=== PATIENT | male | born 1985 | race Caucasian/White ===

== ENCOUNTER → 2019-08-28 | Outpatient (CLI) | payer BC ==
[~2019-08-28] MED LIST: ACHD5005 PO; BSP5T PO; CEPH500C PO; IBUP-15 PO; LISI5TAB PO; NAPR-243 PO
--- NOTE | 2019-08-28 14:17 | Diagnostic Imaging Report ---
INDICATION: Lower back pain with left-sided sciatica. Slipped disc. TECHNIQUE: AP, Lateral and Spot imaging of the lumbar spine CORRELATION STUDY: None FINDINGS: The lumbar spinal curvature is slightly diminished, straightened. The alignment is otherwise normal. Vertebral body heights and disc spaces are maintained. No fracture or malalignment is seen. IMPRESSION: No radiographic evidence for acute bony abnormality of the lumbar spine. Dictated by: Dictated on workstation # [id number]
== END ==
LOC: RAD 12:38
PROVIDERS: ATTEND Nurse Practitioner Family
DX: M51.16 Intervertebral disc disorders with radiculopathy, lumbar region (principal)
CPT/HCPCS: 72100

== ENCOUNTER → 2019-09-08 | Outpatient (CLI) | payer BC ==
--- NOTE | 2019-09-08 08:52 | Diagnostic Imaging Report ---
PROCEDURE: MRI lumbar spine. TECHNIQUE: Multiplanar/multisequence MRI of the lumbar spine was performed without contrast. DATE: September 08, 2019. COMPARISON: Lumbar spine radiographs August 28, 2019. INDICATION: 33-year-old male, injury in July 2019. Low back pain. FINDINGS: There is normal lumbosacral spine alignment. The bone marrow signal is unremarkable. The visualized cord and conus medullaris is unremarkable and terminates at the T12-L1 level. The disc heights are well preserved. L1-L2: There is no disc bulge. The facet joints and ligamentum flavum are unremarkable. There is no foraminal narrowing. There is no spinal canal stenosis. L2-L3: There is no disc bulge. The facet joints and ligamentum flavum are unremarkable. There is no foraminal narrowing. There is no spinal canal stenosis. L3-L4: There is no disc bulge. There are mild left facet degenerative changes without ligamentum flavum hypertrophy. There is a very small right facet joint effusion. There is no foraminal narrowing. There is no spinal canal stenosis. L4-L5: There is an annular tear with somewhat broad-based posterior disc protrusion. This contacts the bilateral descending L5 nerve roots. The disc protrusion measures 13 mm in transverse dimension and 3 mm in anterior to posterior dimension. There is mild narrowing of the left lateral recess. The facet joints and ligamentum flavum are unremarkable. There is mild left foraminal narrowing. There is mild spinal canal stenosis. L5-S1: There is no disc bulge. The facet joints and ligamentum flavum are unremarkable. There is no foraminal narrowing. There is no spinal canal stenosis. IMPRESSION: L4-L5 annular tear and broad-based posterior disc protrusion contacting both descending L5 nerve roots and causing mild narrowing of the left lateral recess and mild left foraminal narrowing. There is mild spinal stenosis at this level. Dictated by: Dictated on workstation # [id number]
== END ==
LOC: RAD 07:52
PROVIDERS: ATTEND Nurse Practitioner Family
DX: M51.16 Intervertebral disc disorders with radiculopathy, lumbar region (principal); M48.061 Spinal stenosis, lumbar region without neurogenic claudication
CPT/HCPCS: 72148

== ENCOUNTER → 2020-10-04 | Outpatient (CLI) | payer BC ==
--- NOTE | 2020-10-04 16:21 | Diagnostic Imaging Report ---
PROCEDURE: MRI right joint lower extremity without contrast. TECHNIQUE: Multiplanar, multisequence non contrast-enhanced MRI of the right lower extremity was accomplished. INDICATION: Ankle pain. COMPARISON: None available. FINDINGS: Tendons: The Achilles is intact. The peroneus longus and brevis tendons are normal. Posterior tibialis, flexor hallucis longus and flexor digitorum longus are intact. Anterior tibialis, extensor hallucis longus and extensor digitorum longus are normal. Ligaments: The anterior and posterior distal tibiofibular ligaments are intact. The anterior talofibular, calcaneofibular and posterior talofibular ligaments are normal. Medial deltoid ligamentous complex is intact. Spring ligament is normal in appearance. Bones: There is bone marrow edema within the navicular as well as a hypointense fracture line along its medial aspect. A very small amount of bone marrow edema is present in the lateral and distal aspect of the talar head. Remainder of the osseous structures of the hindfoot and midfoot have normal bone marrow signal. No osteochondral lesion of talar dome. Soft tissues: No ankle joint effusion. No features of plantar fasciitis. No mass effect on the tarsal canal. No abnormal inflammation or scar tissue within the sinus tarsi. IMPRESSION: 1. Nondisplaced fracture within the navicular is most likely a stress fracture in the absence of recent trauma. CT of the ankle without contrast is suggested for further evaluation of fine bone detail. 2. Small focus of bone contusion in the plantar and lateral aspect of the talar head. 3. No ligament or tendon injury about the ankle. Dictated by: Dictated on workstation # [id number]
== END ==
LOC: RAD 13:15
PROVIDERS: ATTEND Nurse Practitioner Family
DX: S92.254A Nondisplaced fracture of navicular [scaphoid] of right foot, initial encounter for closed fracture (principal); S90.01XA Contusion of right ankle, initial encounter; S93.401D Sprain of unspecified ligament of right ankle, subsequent encounter
CPT/HCPCS: 73721

== ENCOUNTER 2020-10-07 10:43 | Emergency (ER) | payer BC ==
[~2020-10-07] VITALS: Ht 182.8 cm; Wt 140.5 kg
[2020-10-07] MEDS ORDERED: ONDANSETRON 4 MG/2 ML (SDV) Z0FRAN IVP ONE (11:00)
[2020-10-07] MEDS ORDERED: fentaNYL INJECTION 100 MCG/2 ML AMP IVP ONE ×2 (11:00→12:30)
[2020-10-07] MEDS ORDERED: LACTATED RINGERS 1,000 ML IV ONE ×2 (11:00→12:45)
[2020-10-07] MEDS ORDERED: NS 100 ML (IVPB) BAG IV ONE (11:15)
[2020-10-07] MEDS ORDERED: HOLD METFORMIN - RECEIVED CONTRAST 20 ML VIAL IV SCH (11:15)
[2020-10-07] MEDS ORDERED: IOHEXOL 350 MG/ML 100 ML (OMNIPAQUE 350) VIAL IV ONE (11:15)
[2020-10-07] MEDS ORDERED: CATHETER FLUSH 10 ML SYR IV PRN (11:15)
[2020-10-07 11:21] LABS: HEMATOCRIT 43 % (40-54); HEMOGLOBIN 15.2 G/DL (13.3-17.7); MEAN CORPUSCULAR HEMOGLOBIN 30 PG (25-34); WHITE BLOOD COUNT 6.6 10^3/uL (4.3-11.0)
[2020-10-07 11:22] LABS: BASOPHILS % (AUTO) 1 % (0-10); EOSINOPHILS # (AUTO) 0.3 10^3/uL (0.0-0.3); EOSINOPHILS % (AUTO) 5 % (0-10); LYMPHOCYTES # (AUTO) 1.9 X 10^3 (1.0-4.0); LYMPHOCYTES % (AUTO) 30 % (12-44); MEAN CORPUSCULAR HGB CONC 35 G/DL (32-36); MEAN CORPUSCULAR VOLUME 86 FL (80-99); MEAN PLATELET VOLUME 10.5 FL (7.4-10.4); MONOCYTES # (AUTO) 0.5 X 10^3 (0.0-1.0); MONOCYTES % (AUTO) 8 % (0-12); NEUTROPHILS # (AUTO) 3.7 X 10^3 (1.8-7.8); NEUTROPHILS % (AUTO) 57 % (42-75); PLATELET COUNT 272 10^3/uL (130-400)
--- NOTE | 2020-10-07 11:27 | ED Abdominal Pain ---
General Chief Complaint: Abdominal/GI Problems Stated Complaint: ABD PAINS Nursing Triage Note: AMB TO ED WITH C/O R SIDE PAIN X 3 DAYS Sepsis Screen: No Definite Risk Source of Information: Patient Exam Limitations: No Limitations History of Present Illness Date Seen by Provider: Oct 07, 2020 Time Seen by Provider: 10:50 Initial Comments This 35-year-old gentleman presents to the emergency room with 3 to 4 days of right lower quadrant pain and vomiting. He has pain with walking, standing, sitting down, other movements, and riding in a car. He has been vomiting but denies diarrhea or constipation. He is afebrile. He retains his appendix. He vomits when he eats. He last ate solid food last night. His last oral intake was his blood pressure medications at 0800. Allergies and Home Medications Allergies Coded Allergies: Penicillins (Verified Allergy, Unknown, 10/07/20) morphine (Verified Allergy, Unknown, 10/07/20) Home Medications Buspirone Hcl 5 Mg Tablet, 5 MG PO TID, (Reported) Cephalexin Monohydrate 500 Mg Capsule, 1 EACH PO QID Prescribed by: ROBERT MORAN on 01/28/12 1438 Hydrocodone Bit/Acetaminophen 1 Each Tablet, 1-2 EACH PO Q6H PRN Prescribed by: ROBERT MORAN on 01/28/12 1438 Hydrocodone/Acetaminophen 1 Each Tablet, 1 TAB PO Q6H PRN for PAIN-BREAKTHROUGH Prescribed by: PETE MARLOW on 10/07/20 1353 Ibuprofen 200 Mg Tablet, 800 MG PO Q4HR PRN, (Reported) Lisinopril 5 Mg Tablet, 5 MG PO DAILY, (Reported) Naproxen 500 Mg Tablet, 1 EACH PO BID PRN Prescribed by: ROEBRT MORAN on 01/28/12 1438 Ondansetron 4 Mg Tab.rapdis, 4 MG PO Q6H PRN for NAUSEA/VOMITING Prescribed by: PETE MARLOW on 10/07/20 1351 Patient Home Medication List Home Medication List Reviewed: Yes Review of Systems Review of Systems Constitutional: no symptoms reported EENTM: No Symptoms Reported Respiratory: No Symptoms Reported Cardiovascular: No Symptoms Reported Gastrointestinal: See HPI Genitourinary: No Symptoms Reported Musculoskeletal: no symptoms reported Skin: no symptoms reported Psychiatric/Neurological: No Symptoms Reported Endocrine: No Symptoms Reported Hematologic/Lymphatic: No Symptoms Reported Past Jfrradj-Eiaswk-Wlqmbg Hx Past Med/Social Hx: Reviewed Nursing Past Med/Soc Hx Patient Social History Alcohol Use: Denies Use Smoking Status: Current Everyday Smoker Type Used: Electronic/Vapor Recent Infectious Disease Expo: No Past Medical History Surgeries: Yes Orthopedic Respiratory: No Cardiac: No Neurological: No Genitourinary: No Gastrointestinal: No Musculoskeletal: No Endocrine: Yes Hypothyroidsim HEENT: No Cancer: No Psychosocial: Yes Bipolar Physical Exam Vital Signs Vital Signs - First Documented 10/07/20 10:47 Temp 36.5 Pulse 88 Resp 18 B/P (MAP) 139/93 (108) Pulse Ox 99 O2 Delivery Room Air Capillary Refill : Less Than 3 Seconds Height/Weight/BMI Height: '" Weight: lbs. oz. 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, no motor/sensory deficits, alert, normal mood/affect, oriented x 3 Skin: normal color, warm/dry Progress/Results/Core Measures Results/Orders Lab Results Laboratory Tests Test 10/07/20 11:04 10/07/20 13:17 Range/Units White Blood Count 6.6 4.3-11.0 10^3/uL Red Blood Count 5.01 4.35-5.85 10^6/uL Hemoglobin 15.2 13.3-17.7 G/DL Hematocrit 43 40-54 % Mean Corpuscular Volume 86 80-99 FL Mean Corpuscular Hemoglobin 30 25-34 PG Mean Corpuscular Hemoglobin Concent 35 32-36 G/DL Red Cell Distribution Width 12.7 10.0-14.5 % Platelet Count 272 130-400 10^3/uL Mean Platelet Volume 10.5 H 7.4-10.4 FL Neutrophils (%) (Auto) 57 42-75 % Lymphocytes (%) (Auto) 30 12-44 % Monocytes (%) (Auto) 8 0-12 % Eosinophils (%) (Auto) 5 0-10 % Basophils (%) (Auto) 1 0-10 % Neutrophils # (Auto) 3.7 1.8-7.8 X 10^3 Lymphocytes # (Auto) 1.9 1.0-4.0 X 10^3 Monocytes # (Auto) 0.5 0.0-1.0 X 10^3 Eosinophils # (Auto) 0.3 0.0-0.3 10^3/uL Basophils # (Auto) 0.0 0.0-0.1 10^3/uL Sodium Level 139 135-145 MMOL/L Potassium Level 3.6 3.6-5.0 MMOL/L Chloride Level 106 98-107 MMOL/L Carbon Dioxide Level 24 21-32 MMOL/L Anion Gap 9 5-14 MMOL/L Blood Urea Nitrogen 16 7-18 MG/DL Creatinine 1.00 0.60-1.30 MG/DL Estimat Glomerular Filtration Rate > 60 BUN/Creatinine Ratio 16 Glucose Level 105 70-105 MG/DL Calcium Level 9.1 8.5-10.1 MG/DL Corrected Calcium 8.9 8.5-10.1 MG/DL Total Bilirubin 0.3 0.1-1.0 MG/DL Aspartate Amino Transf (AST/SGOT) 16 5-34 U/L Alanine Aminotransferase (ALT/SGPT) 19 0-55 U/L Alkaline Phosphatase 92 40-136 U/L C-Reactive Protein High Sensitivity 0.03 0.00-0.50 MG/DL Total Protein 7.5 6.4-8.2 GM/DL Albumin 4.3 3.2-4.5 GM/DL Lipase 24 8-78 U/L Urine Color YELLOW Urine Clarity CLEAR Urine pH 6.5 5-9 Urine Specific [place] 1.010 L 1.016-1.022 Urine Protein NEGATIVE NEGATIVE Urine Glucose (UA) NEGATIVE NEGATIVE Urine Ketones NEGATIVE NEGATIVE Urine Nitrite NEGATIVE NEGATIVE Urine Bilirubin NEGATIVE NEGATIVE Urine Urobilinogen 0.2 < = 1.0 MG/DL Urine Leukocyte Esterase NEGATIVE NEGATIVE Urine RBC (Auto) NEGATIVE NEGATIVE Urine RBC NONE /HPF Urine WBC NONE /HPF Urine Squamous Epithelial Cells NONE /HPF Urine Crystals NONE /LPF Urine Bacteria NEGATIVE /HPF Urine Casts NONE /LPF Urine Mucus NEGATIVE /LPF Urine Culture Indicated NO My Orders Orders - PETE TEJEDA MD Ua Culture If Indicated (10/07/20 10:49) Fentanyl Injection (Sublimaze Injection (10/07/20 11:00) Ondansetron Injection (Zofran Injectio (10/07/20 11:00) Ed Iv/Invasive Line Start (10/07/20 10:57) Lactated Ringers (Lr 1000 Ml Iv Solution (10/07/20 11:00) Cbc With Automated Diff (10/07/20 10:59) Comprehensive Metabolic Panel (10/07/20 10:59) Hs C Reactive Protein (10/07/20 10:59) Lipase (10/07/20 10:59) Ct Abd/Pelv W (Appendicitis) (10/07/20 11:11) Iohexol Injection (Omnipaque 350 Mg/Ml 1 (10/07/20 11:15) Received Contrast (Hold Metformin- Contr (10/07/20 11:15) Sodium Chloride Flush (Catheter Flush Sy (10/07/20 11:15) Ns (Ivpb) (Sodium Chloride 0.9% Ivpb Bag (10/07/20 11:15) Fentanyl Injection (Sublimaze Injection (10/07/20 12:30) Us Gallbladder [id number] (10/07/20 12:26) Lactated Ringers (Lr 1000 Ml Iv Solution (10/07/20 12:45) Ketorolac Injection (Toradol Injection) (10/07/20 13:30) Medications Given in ED Current Medications Medications Dose Ordered Sig/Yanci Route Start Time Stop Time Status Last Admin Dose Admin Fentanyl Citrate 75 mcg ONCE ONCE IVP 10/07/20 11:00 10/07/20 11:01 DC 10/07/20 11:16 75 MCG Fentanyl Citrate 100 mcg ONCE ONCE IVP 10/07/20 12:30 10/07/20 12:31 DC 10/07/20 12:46 100 MCG Iohexol 100 ml ONCE ONCE IV 10/07/20 11:15 10/07/20 11:16 DC 10/07/20 11:58 100 ML Ketorolac Tromethamine 30 mg ONCE ONCE IVP 10/07/20 13:30 10/07/20 13:31 DC 10/07/20 13:32 30 MG Lactated Ringer's 1,000 ml @ 0 mls/hr Q0M ONCE IV 10/07/20 11:00 10/07/20 11:01 DC 10/07/20 11:16 1,000 MLS/HR Lactated Ringer's 1,000 ml @ 0 mls/hr Q0M ONCE IV 10/07/20 12:45 10/07/20 12:46 DC 10/07/20 12:48 1,000 MLS/HR Ondansetron HCl 8 mg ONCE ONCE IVP 10/07/20 11:00 10/07/20 11:01 DC 10/07/20 11:13 8 MG Sodium Chloride 100 ml ONCE ONCE IV 10/07/20 11:15 10/07/20 11:16 DC 10/07/20 11:58 100 ML Vital Signs/I&O 10/07/20 10/07/20 10:47 14:00 Temp 36.5 Pulse 88 71 Resp 18 18 B/P (MAP) 139/93 (108) 118/78 Pulse Ox 99 96 O2 Delivery Room Air Room Air Blood Pressure Mean: 108 Progress Progress Note #1: Time: 11:27 Progress Note Patient was seen and examined shortly after arrival. He is exhibiting peritoneal signs on exam. Symptoms are being treated with Zofran and fentanyl. A liter of IV fluid is infusing. Work-up for appendicitis is underway. Progress Note #2: Progress Note CT scan was unremarkable for appendicitis or other right lower quadrant pathology. CT was followed by ultrasound. Gallbladder was unremarkable. Patient's WBC showed a lymphocytic predominance and labs were otherwise unremarkable. Patient's pain may be in part due to viral illness. He was lashae ated with Toradol and discharged home with return precautions after being hydrated with 2 L of LR. Diagnostic Imaging Diagonstic Imaging: CT Plain Films/CT/US/NM/MRI: abdomen, pelvis Comments CT abdomen and pelvis viewed by me and report reviewed. See report below: NAME: GARLAND BUI [facility] REC#: [id number] PT STATUS: REG ER : 02/26/1935 PHYSICIAN: PETE TEJEDA MD ADMIT DATE: 10/07/20/ER Signed Date of Exam:10/07/20 CHEST 1 VIEW, AP/PA ONLY INDICATION: Chest pain. COMPARISON: 07/24/2020. FINDINGS: Single view of the chest demonstrates slightly worsening central vascular congestion. Stable pleural thickening with trace effusion is seen bilaterally. There is no pneumothorax. Sternal wires midline. IMPRESSION: 1. Cardiac enlargement with slightly worsening central vascular congestion. 2. Stable pleural thickening and likely small bilateral pleural effusions. Dictated by: Dictated on workstation # [id number] Dict: 10/07/20 1755 Trans: 10/07/20 1819 CVB [id number] Interpreted by: STACEY BURKS Electronically signed by: STACEY BURKS 10/07/20 1819 Diagonstic Imaging: Ultrasound Plain Films/CT/US/NM/MRI: abdomen Comments Gallbladder ultrasound report reviewed. See report below: NAME: SAUMYA VERGARA [facility] REC#: [id number] PT STATUS: DEP ER : 1985 PHYSICIAN: PETE TEJEDA MD ADMIT DATE: 10/07/20/ER Signed Date of Exam:10/07/20 US GALLBLADDER 02010 PROCEDURE: US Gallbladder. TECHNIQUE: Multiple real-time grayscale images were obtained over the right upper quadrant in various projections. INDICATION: Right-sided abdominal pain COMPARISON: None. FINDINGS: The size and echogenicity of the liver is normal. There is no mass or intrahepatic biliary duct dilatation. The common bile duct is normal at 4 mm. Portal venous flow is normal. The gallbladder wall and lumen are normal. There were no gallstones. The visualized pancreas, IVC, aorta and right kidney are normal. There is no ascites. IMPRESSION: Negative right upper quadrant ultrasound. Dictated by: Dictated on workstation # [id number] Dict: 10/07/20 1329 Trans: 10/07/20 1642 ACB [id number] Interpreted by: STACEY BURKS Electronically signed by: STACEY BURKS 10/07/20 1642 Departure Impression Primary Impression: Right lower quadrant pain Additional Impression: Nausea and vomiting Qualified Codes: R11.2 - Nausea with vomiting, unspecified Disposition: 01 HOME, SELF-CARE Condition: Improved Departure-Patient Inst. Decision time for Depature: 13:46 Referrals: SANDRINE TINEO RONALD D MD (PCP) Primary Care Physician Patient Instructions: Clear Liquid Diet, Mesenteric Lymphadenitis, Severe Abdominal Pain, Adult (DC) Add. Discharge Instructions: Drink plenty of clear liquids and adhere to a clear liquid diet for the next 48 hours. You may take ibuprofen up to 600 mg every 6 hours as needed for pain. Use hydrocodone for breakthrough pain. Use Zofran (ondansetron) as prescribed for nausea and vomiting. You may additionally use an ifks-nzg-zmeurza antacid such as famotidine or omeprazole for stomach upset. Call with questions or concerns. Use MiraLAX if you are not having sufficient bowel movements. Return to the emergency room if you have worsening condition despite following these measures. Also return if you develop new symptoms such as fever. If not improved by Sunday, you may call Dr. Tineo at the number listed below. All discharge instructions reviewed with patient and/or family. Voiced understanding. Scripts Hydrocodone/Acetaminophen (Hydrocodone-Acetamin 5-325 mg) 1 Each Tablet 1 TAB PO Q6H PRN for PAIN-BREAKTHROUGH, #6 TAB Prov: PETE TEJEDA MD 10/07/20 Ondansetron (Ondansetron Odt) 4 Mg Tab.rapdis 4 MG PO Q6H PRN for NAUSEA/VOMITING, #10 TAB Prov: PETE TEJEDA MD 10/07/20 Copy Copies To 1: SANDRINE TINEO JOSHUA T MD Oct 07, 2020 11:27
[2020-10-07 11:34] LABS: ALBUMIN 4.3 GM/DL (3.2-4.5); CHLORIDE 106 MMOL/L (98-107); POTASSIUM 3.6 MMOL/L (3.6-5.0); SODIUM 139 MMOL/L (135-145)
[2020-10-07 11:35] LABS: CALCIUM 9.1 MG/DL (8.5-10.1)
[2020-10-07 11:37] LABS: GLUCOSE 105 MG/DL (70-105); TOTAL PROTEIN 7.5 GM/DL (6.4-8.2)
[2020-10-07 11:38] LABS: BILIRUBIN,TOTAL 0.3 MG/DL (0.1-1.0); CARBON DIOXIDE 24 MMOL/L (21-32)
[2020-10-07 11:40] LABS: ALKALINE PHOSPHATASE 92 U/L (40-136); GFR ESTIMATED > 60
[2020-10-07 11:41] LABS: BUN/CREATININE RATIO 16
[2020-10-07 11:43] LABS: ALANINE AMINOTRANSFERASE 19 U/L (0-55)
[2020-10-07 11:44] LABS: LIPASE 24 U/L (8-78)
--- NOTE | 2020-10-07 12:21 | Diagnostic Imaging Report ---
PROCEDURE: CT abdomen and pelvis with contrast, rule out appendicitis. TECHNIQUE: Multiple contiguous axial images were obtained through the abdomen and pelvis after the administration of intravenous contrast. All CT scans use one or more of the following dose optimizing techniques: automated exposure control, MA and/or KvP adjustment based on patient size and exam type or iterative reconstruction. INDICATION: Right lower quadrant abdominal pain with nausea, emesis and diarrhea No focal hepatic, gallbladder, pancreatic, adrenal gland, splenic or renal abnormality is identified. The appendix has a normal appearance. There is no evidence of free fluid within the abdomen or pelvis. Moderate amount of stool seen in the right colon. Unopacified bladder is unremarkable. There is no evidence of organized fluid collection or pathologically enlarged adenopathy. Minimal atherosclerotic calcification is seen within the abdominal aorta and iliac arteries. IMPRESSION: No definite acute abnormalities identified. There is moderate stool burden in the right colon. Dictated by: Dictated on workstation # [id number]
[2020-10-07 13:27] LABS: BILIRUBIN,URINE NEGATIVE (NEGATIVE); CLARITY,URINE CLEAR; COLOR,URINE YELLOW; GLUCOSE, URINE (UA) NEGATIVE (NEGATIVE); KETONES,URINE NEGATIVE (NEGATIVE); LEUKOCYTE ESTERASE ,URINE NEGATIVE (NEGATIVE); NITRITE,URINE NEGATIVE (NEGATIVE); PH,URINE 6.5 (5-9); PROTEIN,URINE NEGATIVE (NEGATIVE)
[2020-10-07] MEDS ORDERED: KETOROLAC 30 MG/ML VIAL IVP ONE (13:30)
[2020-10-07 13:35] LABS: BACTERIA,URINE NEGATIVE /HPF
--- NOTE | 2020-10-07 13:40 | Diagnostic Imaging Report ---
PROCEDURE: US Gallbladder. TECHNIQUE: Multiple real-time grayscale images were obtained over the right upper quadrant in various projections. INDICATION: Right-sided abdominal pain COMPARISON: None. FINDINGS: The size and echogenicity of the liver is normal. There is no mass or intrahepatic biliary duct dilatation. The common bile duct is normal at 4 mm. Portal venous flow is normal. The gallbladder wall and lumen are normal. There were no gallstones. The visualized pancreas, IVC, aorta and right kidney are normal. There is no ascites. IMPRESSION: Negative right upper quadrant ultrasound. Dictated by: Dictated on workstation # [id number]
[2020-10-07] MEDS ORDERED: ACHD5005 PO (13:51)
[2020-10-07] MEDS ORDERED: ONDA4TAB11 PO (13:51)
[2020-10-07 14:00] VITALS: BP 118/78
== END 2020-10-07 14:03 | disposition home or self-care (01) ==
LOC: EDUNIT# 10:43 → ER 10:45
DX: R10.31 Right lower quadrant pain (principal); R11.2 Nausea with vomiting, unspecified; F17.290 Nicotine dependence, other tobacco product, uncomplicated; Z88.0 Allergy status to penicillin; Z88.5 Allergy status to narcotic agent
CPT/HCPCS: 36415; 74177; 76705; 80053; 81000; 83690; 85025; 86141